=== PATIENT | female | born 1990 | race Two or more races ===

== ENCOUNTER 2017-11-26 12:57 | Emergency (ER) | payer OTHER ==
[2017-11-26 13:58] VITALS: BP 114/74; PULSE 68; TEMP 97.9; BMI 23.6
--- NOTE | 2017-11-26 14:39 | PDOC ---
History of Present Illness - General Chief Complaint: Laceration Stated Complaint: LACERATION Time Seen by Provider: 11/26/17 14:15 History Source: Patient, Parent(s) Exam Limitations: No Limitations - History of Present Illness Initial Comments: 11/26/17 14:45 Patient states was washing shower door and it broke causing the glass to fall onto her arms, incurred multiple tiny superficial lacerations to her right arm and one deeper laceration to her left hand. Denies numbness or tingling to fingers, no other injury. Occurred: reports: just prior to arrival, this morning Severity: reports: mild Pain Location: reports: upper extremity (left hand ) Method of Injury: Yes: direct blow Associated Symptoms (Fall): denies symptoms Past History - Travel Traveled outside of the country in the last 30 days: No Close contact w/someone who was outside of country & ill: No - Past Medical History Allergies/Adverse Reactions: Allergies Allergy/AdvReac Type Severity Reaction Status Date / Time No Known Allergies Allergy Verified 11/26/17 14:15 Home Medications: Ambulatory Orders NK [No Known Home Medication] 11/26/17 Asthma: No Cancer: No Cardiac Disorders: No COPD: No Diabetes: No HTN: No Seizures: No Thyroid Disease: No - Suicide/Smoking/Psychosocial Hx Smoking History: Never smoked Have you smoked in the past 12 months: No Information on smoking cessation initiated: No Hx Alcohol Use: No Drug/Substance Use Hx: No Hx Substance Use Treatment: No Review of Systems - Review of Systems Able to Perform ROS?: Yes Is the patient limited Kiswahili proficient: Yes Constitutional: Yes: Symptoms Reported, See HPI HEENTM: No: Symptoms Reported Musculoskeletal: Yes: See HPI, Joint Pain, Joint Swelling. No: Symptoms Reported Integumentary: Yes: Symptoms Reported, See HPI, Other (3cm laceration to dorsum left hand ) All Other Systems: Reviewed and Negative *Physical Exam - Vital Signs Last Vital Signs Temp Pulse Resp BP Pulse Ox 97.9 F 68 20 114/74 99 11/26/17 13:49 11/26/17 13:49 11/26/17 13:49 11/26/17 13:49 11/26/17 14:31 - Physical Exam General Appearance: Yes: Appropriately Dressed, Apparent Distress HEENT: positive: TAJ, Normal ENT Inspection, TMs Normal, Pharynx Normal Neck: positive: Tender, Supple Respiratory/Chest: positive: Lungs Clear Extremity: positive: Normal Capillary Refill, Normal Inspection, Normal Range of Motion (strong flexion and extension against resistance to all digits, neurovascular intact to distal digit tips) Integumentary: positive: Normal Color, Dry, Warm 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 Tetanus/diphtheria/pertussis updtaed today *DC/Admit/Observation/Transfer Diagnosis at time of Disposition: Laceration of hand Qualifiers: Encounter type: initial encounter Foreign body presence: without foreign body Laterality: left Qualified Code(s): S61.412A - Laceration without foreign body of left hand, initial encounter - Discharge Dispostion Disposition: HOME Condition at time of disposition: Stable Admit: No - Referrals - Patient Instructions Printed Discharge Instructions: DI for Laceration Repair Additional Instructions: Rest, elevate, avoid strenuous activity or heavy lifting until sutures are removed Leave dressing on for the next 24 hours, Then may remove dressing gently and wash area with soap and water. Reapply bacitracin ointment and dressing daily for the next 5 days On day #6 keep the wound protected and cover as needed until sutures are removed allowing wound to start to dry May use Tylenol or Motrin for pain relief Suture removal in : 10-14 Days Your tetanus/diphtheria/pertussis booster was updated today - Post Discharge Activity Forms/Work/School Notes: Back to Work
[2017-11-26] MEDS ORDERED: DIPHTH,PERTUSS(ACELL),TET 0.5 ML DISP.SYRIN IM ONE (14:45)
== END 2017-11-26 15:17 | disposition home or self-care (01) ==
LOC: JERFT 12:57
PROC: 0JQK0ZZ Repair Left Hand Subcutaneous Tissue and Fascia, Open Approach (ICD-10-PCS; principal; 2017-11-26)
PROC: 3E0234Z Introduction of Serum, Toxoid and Vaccine into Muscle, Percutaneous Approach (ICD-10-PCS; 2017-11-26)
DX: S61.412A Laceration without foreign body of left hand, initial encounter (principal); S41.111A Laceration without foreign body of right upper arm, initial encounter; W25.XXXA Contact with sharp glass, initial encounter; Y93.E9 Activity, other interior property and clothing maintenance; Y92.031 Bathroom in apartment as the place of occurrence of the external cause; Y99.8 Other external cause status
CPT/HCPCS: 12001-25; 90471; 90715; 99282-25

== ENCOUNTER 2019-12-21 11:59 | Emergency (ER) | payer OTHER ==
[2019-12-21 12:51] VITALS: BP 137/86; PULSE 91; TEMP 98.3; BMI 23.6
--- NOTE | 2019-12-21 12:55 | PDOC ---
History of Present Illness - General Stated Complaint: FEVER/COUGH Time Seen by Provider: 12/21/19 12:45 History Source: Patient Exam Limitations: No Limitations - History of Present Illness Initial Comments: 12/21/19 12:51 Pt is a 29 y/o female with bodyaches, sore throat, malaise, cough and general unwell feeling for the last 4 days. She admits to subjective fevers. She has taken motrin, last time last night. She denies any known COVID contacts. She denies any other sick contacts. She denies any past medical history or allergies to medications. Past History - Past Medical History Allergies/Adverse Reactions: Allergies Allergy/AdvReac Type Severity Reaction Status Date / Time No Known Allergies Allergy Verified 12/21/19 12:46 Home Medications: Ambulatory Orders NK [No Known Home Medication] 11/26/17 Asthma: No Cancer: No Cardiac Disorders: No COPD: No Diabetes: No HTN: No Seizures: No Thyroid Disease: No - Immunization History Immunization Up to Date: Yes - Psycho Social/Smoking Cessation Hx Smoking History: Never smoked Have you smoked in the past 12 months: No Information on smoking cessation initiated: No Hx Alcohol Use: No Drug/Substance Use Hx: No Hx Substance Use Treatment: No Review of Systems - Review of Systems Comments:: 12/21/19 12:54 - Review of Systems Able to Perform ROS?: Yes Constitutional: No: Loss of Appetite, Night Sweats, Weakness; positive chills and subjective fever HEENTM: No: Eye Pain, Vision changes, Ear Pain, Throat Swelling, Mouth Pain, Difficulty Swallowing; + Throat Pain Respiratory: No: Shortness of Breath, Wheezing, Sputum Production; + Cough Cardiac (ROS): No: Chest Pain, Chest Tightness, Palpitations, Irregular Heart Beat, Edema ABD/GI: No: Nausea, Vomiting, Abdominal Pain, Diarrhea : No Dysuria, No Hematuria, No Frequency, No Urgency Musculoskeletal: No: Muscle Pain, Back Pain, Joint Pain, Muscle Weakness, Neck Pain Integumentary: No: Lesions, Rash Neurological: No: Headache, Numbness, Tingling, Weakness, Speech Difficulties *Physical Exam - Vital Signs Last Vital Signs Temp Pulse Resp BP Pulse Ox 98.3 F 91 H 18 137/86 100 12/21/19 12:40 12/21/19 12:40 12/21/19 12:40 12/21/19 12:40 12/21/19 12:40 - Physical Exam 12/21/19 12:52 - Physical Exam General Appearance: Nourished, Appropriately Dressed, Moderate distress secondary to general unwell feeling, non-toxic HEENT: EOMI, Normal Voice, No Pharyngeal Erythema, No Muffled/Hoarse voice, No Tonsillar Exudate, No Tonsillar Erythema, + Nasal Congestion, No Rhinorrhea, Hearing Grossly Normal Neck: Supple, No Lymphadenopathy (R), No Lymphadenopathy (L), No Rigidity, No Decreased range of motion Respiratory/Chest: Lungs Clear, Normal Breath Sounds. No Respiratory Distress, No Accessory Muscle Use; good air entry b/l, no wheezes/rales/rhonchi Cardiovascular: Regular Rhythm, Regular Rate, S1, S2 Gastrointestinal/Abdominal: Normal Bowel Sounds, Soft. Non-tender, No Guarding, No Rebound, No Rigidity Musculoskeletal: Normal Inspection. No Decreased Range of Motion Extremity: Normal Capillary Refill, Normal Inspection Integumentary: Normal Color, Dry. 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 Plan: -flu swab ordered -will reassess 12/21/19 13:12 Pt has been made aware that she has influenza B. She has been encouraged to get plenty rest and drink plenty of fluids. Take Tylenol or ibuprofen for fevers or bodyaches. You are contagious so avoid contact with others. Discharge - Discharge Information Problems reviewed: Yes Clinical Impression/Diagnosis: Influenza B Condition: Stable Disposition: HOME - Follow up/Referral - Patient Discharge Instructions Patient Printed Discharge Instructions: DI for Influenza -- Adult Additional Instructions: Get plenty of rest and drink plenty of fluids. Take Tylenol or ibuprofen for fevers or bodyaches. See your primary doctor within 2 days for repeat evaluation. - Post Discharge Activity Work/Back to School Note: Back to Work
== END 2019-12-21 13:24 | disposition home or self-care (01) ==
LOC: JER 11:59
DX: J10.1 Influenza due to other identified influenza virus with other respiratory manifestations (principal)
CPT/HCPCS: 87804; 99283-25